=== PATIENT | male | born 1950 | race African-American/Black ===

== ENCOUNTER → 2018-01-02 | Outpatient (CLI) | payer MEDICARE ==
--- NOTE | 2018-01-02 13:58 | Diagnostic Imaging Report ---
PROCEDURE: Frontal and lateral views of the chest. COMPARISON: None. INDICATIONS: CHRONIC COUGH, SHORTNESS OF BREATH FINDINGS: Lines/tubes: None. Lungs: There is no evidence of pneumonia or pulmonary edema. Subsegmental atelectasis in the lung bases. Pleura: There is no pleural effusion or pneumothorax. Heart and mediastinum: Moderate cardiac enlargement with particular enlargement of the right atrium. The aorta is tortuous. Bones: Multilevel spondylosis of the thoracic spine. IMPRESSION: Predominantly right-sided cardiac enlargement. Correlate for evidence of right heart failure and/or pulmonary hypertension. Dictated by: Florian Iraheta M.D. on 01/02/2018 at 13:59 Electronically approved by: Florian Iraheta M.D. on 01/02/2018 at 13:59
== END ==
LOC: RAD 12:58
PROVIDERS: ATTEND Family Medicine
DX: R05 Cough (principal)
CPT/HCPCS: 71046